=== PATIENT | female | born 1990 | race Caucasian/White ===

== ENCOUNTER 2021-09-25 13:53 | Emergency (ER) | payer BC ==
[~2021-09-25] VITALS: Ht 157.5 cm; Wt 75.6 kg
[2021-09-25] MEDS ORDERED: VALA1TAB5 PO (14:24)
[2021-09-25 15:33] LABS: BASO % 0.3 % (0.0-1.0); EOS # 0.1 10^3/uL (0.0-0.5); EOS % 0.7 % (0.0-3.0); HEMATOCRIT 40.2 % (36.0-47.0); HEMOGLOBIN 13.8 g/dl (12.0-15.5); LYMPH # 1.2 10^3/uL (1.5-5.0); LYMPH % 10.8 % (24.0-44.0); MEAN CORPUSCULAR HEMOGLOBIN 31.9 pg (27.0-33.0); MEAN CORPUSCULAR HGB CONC 34.3 g/dl (32.0-36.5); MEAN CORPUSCULAR VOLUME 92.8 fl (80.0-96.0); MONO # 0.6 10^3/uL (0.0-0.8); MONO % 5.2 % (2.0-8.0); NEUTROPHILS # 9.2 10^3/uL (1.5-8.5); NEUTROPHILS % 82.3 % (36.0-66.0); PLATELET COUNT, AUTOMATED 256 10^3/uL (150-450); RED BLOOD COUNT 4.33 10^6/uL (4.00-5.40); WHITE BLOOD COUNT 11.1 10^3/uL (4.0-10.0)
[2021-09-25 15:54] LABS: ERYTHROCYTE SEDIMENTATION RATE 16 mm/hr (0-20)
[2021-09-25] MEDS ORDERED: NS 1,000 ML IV ONE (16:55)
[2021-09-25] MEDS ORDERED: ONDANSETRON 4MG 2ML VIAL IV ONE (16:55)
[2021-09-25 17:20] LABS: ALBUMIN 3.4 GM/DL (3.2-5.2); BILIRUBIN,DIRECT 0.5 MG/DL (0.0-0.2); BILIRUBIN,TOTAL 2.8 MG/DL (0.2-1.0); C REACTIVE PROTEIN QUANTITATIV 1.2 MG/DL (0.00-0.30); TOTAL PROTEIN 7.1 GM/DL (6.4-8.2)
[2021-09-25] MEDS ORDERED: ACETAMINOPHEN 325 MG TAB PO ONE (21:30)
[2021-09-25 21:34] VITALS: BP 97/53
== END 2021-09-25 21:49 | disposition home or self-care (01) ==
LOC: M ED 13:53
DX: O99.63 Diseases of the digestive system complicating the puerperium (principal); K80.20 Calculus of gallbladder without cholecystitis without obstruction; R74.01 Elevation of levels of liver transaminase levels; Z87.891 Personal history of nicotine dependence; Z3A.01 Less than 8 weeks gestation of pregnancy
CPT/HCPCS: 76705; 76801; 80047; 80076; 81001; 83605; 83690; 84702; 85025; 85652; 86140; 87040; 87426; 93976; 96361; 96374; 99284; J2405